=== PATIENT | female | born 1985 | race Caucasian/White ===

== ENCOUNTER 2016-12-31 22:53 | Emergency (ER) | payer OTHER ==
[2017-01-01 00:22] LABS: ADD URINE CULTURE? NO (NO); Bilirubin NEGATIVE (NEGATIVE); Blood NEGATIVE Ery/ul (0-5); COMPLETE URINE MICROSCOPIC? NO; Collection Type CLEAN CATCH; Glucose NEGATIVE (NEGATIVE); Leukocyte Esterase NEGATIVE (NEGATIVE)
--- NOTE | 2017-01-01 00:26 | ERPHSYRPT ---
- History of Present Illness Time Seen by Provider: 12/31/16 23:43 Historian: patient Exam Limitations: no limitations Patient Subjective Stated Complaint: pt notes light brown vag discharge tonight with sl lower abd pain -she has been up and around all day cleaning house -no intercourse recently pt is approx 13 weeks no urinary sx sl vag itching Triage Nursing Assessment: pt is awake and alert and able to answer questions Physician History: FOR THE PAST 12 HOURS PT HAS HAD INTERMITTENT LOWER ABDOMINAL CRAMPS, NAUSEA AND SPOTTING. PT ALSO C/O INCREASED URINARY FREQUENCY FOR THE PAST 3 WEEKS. PT DENIES ABORTIONS OR MISCARRIAGES; HAS BEEN ONCE BEFORE AND WENT FULL TERM. Allergies/Adverse Reactions: No Known Drug Allergies Allergy (Unverified 12/31/16 23:23) Home Medications: Vits W-Ca,Fe,FA(<1Mg) [] 1 tab DAILY 12/31/16 [History] Hx Tetanus, Diphtheria Vaccination/Date Given: No Hx Influenza Vaccination/Date Given: No - Review of Systems Abdominal/Gastrointestinal: Abdominal Pain, Nausea Genitourinary Symptoms: Frequency, , Vaginal Bleeding All Other Systems: Reviewed and Negative - Past Medical History Pertinent Past Medical History: No - Past Surgical History Past Surgical History: No - Social History Smoking Status: Current every day smoker Exposure to second hand smoke: Yes Drug Use: none Patient Lives Alone: No - Female History Hx Last Menstrual Period: 08/26 - Nursing Vital Signs Nursing Vital Signs: Initial Vital Signs Temperature 98 F 12/31/16 23:11 Pulse Rate 88 12/31/16 23:11 Respiratory Rate 16 12/31/16 23:11 Blood Pressure 129/68 12/31/16 23:11 O2 Sat by Pulse Oximetry 97 12/31/16 23:11 Pain Scale Pain Intensity 1 - Physical Exam General Appearance: alert Eye Exam: PERRL/EOMI Ears, Nose, Throat Exam: pharynx normal, moist mucous membranes Neck Exam: normal inspection Respiratory Exam: lungs clear Cardiovascular Exam: normal heart sounds Gastrointestinal/Abdomen Exam: soft, normal bowel sounds, tenderness (MILD SUPRAPUBIC TENDERNESS) Back Exam: normal range of motion Extremity Exam: normal inspection, No pedal edema Neurologic Exam: alert, cooperative Skin Exam: warm, dry SpO2 Interpretation: normal SpO2: 97 Oxygen Delivery: Room Air - Radiology Ultrasound Exam OB Ultrasound: Other (TECH REPORT: 13 WK 4 DAY NORMAL IUP; HEART RATE = 158.) Ordered Tests: Active Orders 24 hr Category Date Time Status Heart Tones-ED STAT Care 12/31/16 23:53 Active OB <14 WKS 1ST GESTATION [US] Stat Exams 01/01/17 23:55 Taken UA W/RFX UR CULTURE Stat Lab 12/31/16 23:40 Completed Lab/Rad Data: Laboratory Results 12/31/16 Range/Units 23:40 Ur Collection Type CLEAN CATCH Urine Color YELLOW (YELLOW) Urine Appearance CLEAR (CLEAR) Urine pH 6.0 (5-6) Ur Specific [place] 1.025 (1.005-1.025) Urine Protein NEGATIVE (Negative) Urine Ketones NEGATIVE (NEGATIVE) Urine Blood NEGATIVE (0-5) Erasmo/ul Urine Nitrite NEGATIVE (NEGATIVE) Urine Bilirubin NEGATIVE (NEGATIVE) Urine Urobilinogen NORMAL (0-1) mg/dL Ur Leukocyte Esterase NEGATIVE (NEGATIVE) Urine Glucose NEGATIVE (NEGATIVE) mg/dL Specimen Received 12/31/16 4246 - Departure Time of Disposition: 00:40 Departure Disposition: Home Clinical Impression: Threatened Condition: Stable Critical Care Time: No Referrals: BRITTNEY GALINDO [Primary Care Provider] - Instructions: Threatened Additional Instructions: FOLLOW UP WITH OB DOCTOR TOMORROW. STRICT BED REST UNTIL OB DOCTOR IS SEEN. Prescriptions: Promethazine HCl 25 mg [Phenergan 25 mg] 25 mg PO Q4H PRN PRN #14 tablet PRN Reason: Nausea/Vomiting
[2017-01-01 00:43] VITALS: BP 130/78; PULSE 72; O2SAT 98
--- NOTE | 2017-01-01 16:03 | XRAY ---
Exam: Transabdominal pelvic ultrasound less than 14 weeks from 01/01/2017. Comparison: OB ultrasound less than 14 weeks from 12/10/2016. Indication: Cramping and spotting, patient is 13 weeks . Findings: Transabdominal images reveal a single live intrauterine fetus. The heart rate measured [address] [place]-rump length measured 7.5 cm consistent with a gestational age of 13 weeks 4 days. This represents normal intrauterine growth since the prior exam of 12/10/2016. Early formation of the placenta appears to be posterior. A normal amount of amniotic fluid is seen. No gross abnormality is seen. The maternal left ovary appears unremarkable. The maternal right ovary is seen more posteriorly and is remarkable only for a tiny cyst. No free fluid is seen within the maternal pelvis. Impression: 1. 13 week 4 day single live intrauterine fetus. The heart rate measured 158 bpm. There has been satisfactory intrauterine growth since the prior OB ultrasound exam from 12/10/2016. 2. Early formation of the placenta appears to be posterior. 3. A normal amount of amniotic fluid is seen. 4. Both maternal ovaries appear unremarkable. No free fluid is seen within the maternal pelvis.
== END 2017-01-01 01:16 | disposition home or self-care (01) ==
LOC: ED 22:53
DX: O20.0 Threatened abortion (principal)
CPT/HCPCS: 76801; 81002; 99283; 99284

== ENCOUNTER 2017-05-27 12:47 | Observation (INO) | payer OTHER ==
[2017-05-27 14:16] VITALS: PULSE 88; O2SAT 97
[2017-05-27] MEDS ORDERED: Lactated Ringers 1,000 ML IV ONE (14:17)
[2017-05-27 14:51] LABS: BASOPHIL % 0.4 % (0.0-0.4); Basophil (Absolute #) 0.04 (0-0.4); Eosinophil % 1.5 % (0.00-5.0); Eosinophil (Absolute #) 0.17 (0-0.5); Granulocyte Absolute (ANC) 6.93 (1.4-6.9); Granulocytes % 62.7 % (36.0-66.0); Hematocrit 34.6 % (35-47); Hemoglobin 11.5 gm/dl (12.0-16.0); Lymphocyte (Absolute #) 3.06 (1.0-4.6); Lymphocytes % 27.7 % (24.0-44.0); Mean Cell Volume 88.7 fl (78-100); Mean Corpuscular Hgb Concent. 33.2 g/dl (32-36); Mean Platelet Volume 9.8 fl (6-9.5); Monocyte (Absolute #) 0.85 (0.0-1.3); Monocytes % 7.7 % (0.0-12.0); Platelet Count 433 K/mm3 (150-450); Red Cell Distribution Width 13.8 % (11.5-14.0); White Blood Count 11.1 K/mm3 (4.0-10.5)
[2017-05-27 14:52] LABS: Mean Corpuscular Hemoglobin 29.4 pg (26-32)
[2017-05-27 14:59] LABS: ALBUMIN 2.5 g/dL (3.4-5.0); ALKALINE PHOSPHATASE 100 U/L (46-116); ANION GAP 16.3 MEQ/L (5-15); BLOOD UREA NITROGEN 4 mg/dL (9-20); CHLORIDE 104 mEq/L (98-107); Calcium 9.1 mg/dL (8.5-10.1); Carbon Dioxide 21.1 mEq/L (21-32); Creatinine 1 0.56 mg/dl (0.55-1.30); EST GLOMERULAR FILTRATION RATE > 60 ML/MIN; Glucose 90 MG/DL (70-110); SGOT/AST 17 U/L (15-37); SGPT/ALT 14 U/L (12-78); SODIUM 137 mEq/L (136-145); Total Protein 6.3 gm/dL (6.4-8.2)
--- NOTE | 2017-05-27 16:05 | XRAY ---
Indication: growth. 2-dimensional OB ultrasound performed. Comparison: April 21, 2017. Again there is a single viable intrauterine now in cephalic presentation. Normal four-chamber heart with heart rate 130 BPM. Normal three-vessel cord and normal cord insertion previously documented. Visualized stomach, kidneys, and bladder are unremarkable. Placenta is posterior again without abruption/previa. BPD measures 8.29 cm corresponding to 33 weeks 2 days. HC measures 30.05 cm corresponding to 33 weeks 2 days. AC measures 29.62 cm corresponding to 33 weeks 4 days. FL measures 6.48 cm corresponding to 33 weeks 3 days. BRIA is 9.7 cm. Impression: Again single viable intrauterine with mean gestational age 33 weeks 3 days. Normal progression of .
--- NOTE | 2017-05-27 16:08 | XRAY ---
Indication: well-being. Ultrasound biophysical profile study was performed. Comparison: None There is a single viable intrauterine with heart rate 130 BPM. Four-quadrant BRIA is 9.7 cm. Largest amniotic pocket 3.6 cm. 2 points given for breathing, movements, tone, and qualitative amniotic fluid volume. Impression: Total biophysical profile score is 8 out of 8.
[2017-05-27 18:05] VITALS: BP 120/67
== END 2017-05-27 18:20 | disposition home or self-care (01) ==
LOC: MED SURG 12:47
PROVIDERS: ADMIT Family Medicine; ATTEND Family Medicine
DX: Z34.83 Encounter for supervision of other normal pregnancy, third trimester (principal)
CPT/HCPCS: 36415; 59025; 76805; 76819; 80053; 85025; G0378

== ENCOUNTER 2017-05-31 12:34 | Observation (INO) | payer OTHER ==
[2017-05-31 13:13] VITALS: BP 116/59; PULSE 96
== END 2017-05-31 14:00 | disposition home or self-care (01) ==
LOC: OB 12:34
PROVIDERS: ADMIT Family Medicine; ATTEND Family Medicine
DX: Z34.83 Encounter for supervision of other normal pregnancy, third trimester (principal)
CPT/HCPCS: 59025; G0378

== ENCOUNTER 2017-07-07 18:30 | Inpatient (IN) | payer OTHER ==
[2017-07-07] MEDS ORDERED: BRETHINE 1 MG/ML SQ PRN (20:19)
[2017-07-07 21:05] LABS: BASOPHIL % 0.3 % (0.0-0.4); Basophil (Absolute #) 0.03 (0-0.4); Eosinophil % 0.6 % (0.00-5.0); Eosinophil (Absolute #) 0.05 (0-0.5); Granulocyte Absolute (ANC) 6.39 (1.4-6.9); Hematocrit 36.6 % (35-47); Hemoglobin 12.3 gm/dl (12.0-16.0); Lymphocyte (Absolute #) 1.33 (1.0-4.6); Lymphocytes % 15.2 % (24.0-44.0); Mean Cell Volume 88.2 fl (78-100); Mean Corpuscular Hemoglobin 29.6 pg (26-32); Mean Corpuscular Hgb Concent. 33.6 g/dl (32-36); Mean Platelet Volume 10.2 fl (6-9.5); Monocyte (Absolute #) 0.95 (0.0-1.3); Monocytes % 10.9 % (0.0-12.0); Platelet Count 370 K/mm3 (150-450); Red Blood Count 4.15 M/mm3 (4.1-5.4); Red Cell Distribution Width 14.1 % (11.5-14.0); White Blood Count 8.8 K/mm3 (4.0-10.5)
[2017-07-07 21:20] LABS: Amphetamine,Urine NEG. (NEGATIVE); Barbiturate,Urine NEG. (NEGATIVE); Benzodiazepine,Urine NEG. (NEGATIVE); Cocaine,Urine NEG. (NEGATIVE); Methadone,Urine NEG. (NEGATIVE); Opiate,Urine NEG. (NEGATIVE); PCP,Urine NEG. (NEGATIVE); THC,Urine NEG. (NEGATIVE)
[2017-07-07] MEDS ORDERED: Cervidil 10 MG VAG SCH (22:00)
[2017-07-07] MEDS ORDERED: Ambien 5 MG Tablet ONE (22:36)
[2017-07-07] MEDS ORDERED: Ambien 5 MG Tablet PO PRN (22:39)
[2017-07-08] MEDS ORDERED: Ephedrine Sulfate 50 MG/ML IV PRN (05:41)
[2017-07-08] MEDS ORDERED: Lactated Ringers 1,000 ML IV ONE (05:41)
[2017-07-08] MEDS ORDERED: OB EPIDURAL NAROPIN/SUFENTANIL IN NACL EPIDURAL PRN (05:41)
[2017-07-08 07:38] VITALS: O2SAT 97
[2017-07-08] MEDS ORDERED: XYLOCAINE 1% HCL 20 ML MDV ONE (07:48)
[2017-07-08] MEDS ORDERED: Lactated Ringers 1,000 ML IV SCH (09:00)
[2017-07-08] MEDS ORDERED: PITOCIN 30 UNITS/ LR 500 ML 500 ML IV SCH (09:00)
[2017-07-08] MEDS ORDERED: Anucort-HC SUPPOSITORY PR PRN (13:16)
[2017-07-08] MEDS ORDERED: Dulcolax 10 MG SUPP PR PRN (13:16)
[2017-07-08] MEDS ORDERED: NORCO 5/325 MG PO PRN (13:16)
[2017-07-08] MEDS ORDERED: TYLENOL EXTRA STRENGTH 500 MG PO PRN (13:16)
[2017-07-08] MEDS ORDERED: CORTISONE 1% CREAM TP PRN (13:16)
[2017-07-08] MEDS ORDERED: Mylicon 80MG PO PRN (13:16)
[2017-07-08] MEDS ORDERED: Dermoplast Spray TP PRN (13:16)
[2017-07-08] MEDS ORDERED: LANSINOH 40 GM TOP PRN (13:16)
[2017-07-08] MEDS ORDERED: TUCKS TP PRN (13:16)
[2017-07-08] MEDS ORDERED: Ambien 10 MG PO PRN (13:16)
[2017-07-08] MEDS: MOTRIN 400 MG PO PRN ×2 (13:25→20:44)
[2017-07-08] MEDS ORDERED: Adacel Vial IM ONE (16:00)
[2017-07-08] MEDS: Colace 100 MG PO SCH (20:44)
[2017-07-09 06:03] LABS: BASOPHIL % 0.6 % (0.0-0.4); Basophil (Absolute #) 0.04 (0-0.4); Eosinophil % 0.2 % (0.00-5.0); Eosinophil (Absolute #) 0.01 (0-0.5); Granulocyte Absolute (ANC) 3.86 (1.4-6.9); Granulocytes % 59.4 % (36.0-66.0); Hematocrit 35.7 % (35-47); Hemoglobin 11.8 gm/dl (12.0-16.0); Lymphocyte (Absolute #) 1.96 (1.0-4.6); Lymphocytes % 30.2 % (24.0-44.0); Mean Cell Volume 89.3 fl (78-100); Mean Corpuscular Hemoglobin 29.5 pg (26-32); Mean Corpuscular Hgb Concent. 33.1 g/dl (32-36); Mean Platelet Volume 10.3 fl (6-9.5); Monocyte (Absolute #) 0.62 (0.0-1.3); Monocytes % 9.6 % (0.0-12.0); Platelet Count 321 K/mm3 (150-450); Red Cell Distribution Width 14.5 % (11.5-14.0); White Blood Count 6.5 K/mm3 (4.0-10.5)
[2017-07-09] MEDS: FERREX 150 PO SCH (09:19)
[2017-07-09] MEDS: Colace 100 MG PO SCH ×2 (11:46→20:18)
[2017-07-09] MEDS: MOTRIN 400 MG PO PRN (20:01)
[2017-07-10] MEDS: FERREX 150 PO SCH (10:17)
[2017-07-10 10:18] VITALS: BP 118/72; PULSE 98
--- NOTE | 2017-07-10 10:41 | PCM.DS ---
Discharge Summary Date of Admission: 07/08/17 05:30 Admitting Physician: BRITTNEY GALINDO Consults: Consults on Case 07/08/17 05:41 Notify Anesthesia Provider PRN Primary Care Provider: BRITTNEY GALINDO Allergies Allergies No Known Drug Allergies Allergy (Verified 05/31/17 12:59) Hospital Summary - Hospital Course Hospital Course: patient 31yo for induction of labor at 40 2/7 wks, had with no complications. pain is mild and controlled with motrin. - Vitals & Intake/Output Vital Signs: Vital Signs Temperature 99.3 F 07/10/17 10:00 Pulse Rate 98 H 07/10/17 10:00 Respiratory Rate 18 07/10/17 10:00 Blood Pressure 118/72 07/10/17 10:00 O2 Sat by Pulse Oximetry 97 07/08/17 06:35 Intake & Output: Intake & Output 07/07/17 07/08/17 07/09/17 07/10/17 11:59 11:59 11:59 11:59 Intake Total 1200 Balance 1200 Weight 190 kg 86.183 kg - Lab Result Diagrams: 07/09/17 05:10 Discharge Exam General Appearance: no apparent distress, alert Skin Exam: normal color, warm, dry Respiratory Exam: normal breath sounds, lungs clear, No respiratory distress Cardiovascular Exam: regular rate/rhythm, normal heart sounds Gastrointestinal/Abdomen Exam: soft, No tenderness, No mass Extremity Exam: normal inspection, normal range of motion Final Diagnosis/Problem List - Final Discharge Diagnosis/Problem (1) Vaginal delivery Current Visit: Yes Status: Acute (2) (infant) Current Visit: Yes Status: Acute - Discharge Disposition: Home, Self-Care Condition: Stable Prescriptions: New Breast Pump 1 each UD #1 each Continue Vits W-Ca,Fe,FA(<1Mg) [] 1 tab PO DAILY Ferrous Sulfate 325 mg PO DAILY Ranitidine HCl [Zantac] 150 mg PO BID Follow up with: BRITTNEY GALINDO [Primary Care Provider] - 1 Week
[2017-07-10] MEDS: Colace 100 MG PO SCH (11:16)
== END 2017-07-10 13:45 | disposition home or self-care (01) | DRG 775 ==
LOC: UNDOADMOB 18:30 → MED SURG 18:30 → INTOOBSV 07-08 05:30 → OBSVTOIN 07-08 05:30
PROVIDERS: ADMIT Family Medicine; ATTEND Family Medicine
PROC: 10E0XZZ Delivery of Products of Conception, External Approach (ICD-10-PCS; principal; 2017-07-08)
DX: O80 Encounter for full-term uncomplicated delivery (principal); Z3A.40 40 weeks gestation of pregnancy; Z37.0 Single live birth; D64.9 Anemia, unspecified
CPT/HCPCS: 01967; 36415; 80307; 85025; 90472; 90715; 94799; G0378; J2590; J2795; A9270-GY

== ENCOUNTER 2023-03-31 18:54 | Emergency (ER) | payer BC ==
[2023-03-31 19:05] VITALS: TEMP 95.9
[2023-03-31 19:12] LABS: Hematocrit 43.9 % (35-47); Hemoglobin 14.2 g/dL (12.0-16.0); Mean Cell Volume 84.3 fL (78-100); Mean Corpuscular Hemoglobin 27.3 pg (26-32); Mean Corpuscular Hgb Concent. 32.3 g/dL (32-36); Mean Platelet Volume 9.3 fL (7.5-11.0); Platelet Count 520 x10^3/uL (150-450); Red Blood Count 5.21 x10^6/uL (4.1-5.4); Red Cell Distribution Width 13.1 % (11.5-14.0); White Blood Count 14.1 x10^3/uL (4.0-10.5)
[2023-03-31 19:37] LABS: ALBUMIN 4.3 g/dL (3.5-5.0); ALKALINE PHOSPHATASE 82 U/L (38-126); BLOOD UREA NITROGEN 8 mg/dL (7-17); CHLORIDE 103 mmol/L (98-107); Calcium 9.7 mg/dL (8.4-10.2); Carbon Dioxide 24 mmol/L (22-30); EST GLOMERULAR FILTRATION RATE 85.5 ML/MIN; Glucose 109 mg/dL (74-106); NT PRO BNPII < 20.0 pg/mL (<300); Potassium 3.5 mmol/L (3.5-5.1); SGOT/AST 19 U/L (14-36); SGPT/ALT 27 U/L (0-35); SODIUM 141 mmol/L (137-145); Total Protein 7.5 g/dL (6.3-8.2)
[2023-03-31 19:48] LABS: HCG SERUM TEST NEGATIVE (NEGATIVE)
[2023-03-31] MEDS ORDERED: BABY ASPIRIN 81 MG CHEW PO ONE (19:50)
--- NOTE | 2023-03-31 19:58 | ERPHSYRPT ---
- History of Present Illness Time Seen by Provider: 03/31/23 19:10 Historian: patient Exam Limitations: no limitations Patient Subjective Stated Complaint: Chest pain Triage Nursing Assessment: Patient ambulated back to ED and transferred self to bed. Patient state around 1800 she was sitting in a chair when she suddenly felt her heart racing then she started getting pressure in chest down left shoulder to elbow. Patient currently denies pain. Patient denies N/V Physician History: Patient is a 37-year-old female presents to our ED for evaluation of heart palpitations and chest pressure. Symptoms started at approximately 1800. Patient was sitting in a chair. Patient began to feel her heart race. Patient felt a pain sensation down her left arm. No associated nausea vomiting or diaphoresis. No trauma no fever. Patient does not know her health status. She does not follow-up with a primary care doctor regularly. Patient is a smoker. Patient is not on control. 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 She is not actively taking any medications. Patient is currently asymptomatic. at bedside. They voiced no other complaints or concerns at this time. Portions of this note were created with voice recognition technology. There may be grammatical, spelling, punctuation or sound alike errors Timing/Duration: today Activities at Onset: none (Sitting in a chair) Quality: pressure Location: substernal Chest Pain Radiation: arm Severity of Pain-Max: moderate Severity of Pain-Current: none Modifying Factors: Improves With: nothing Associated Symptoms: denies symptoms Prior Chest Pain/Cardiac Workup: no prior chest pain Nitro Today/Relief: no nitro taken today Aspirin Treatment Today: no aspirin today Allergies/Adverse Reactions: No Known Drug Allergies Allergy (Verified 03/31/23 18:57) Home Medications: No Reportable Medications [No Reported Medications] 03/31/23 [History] Hx Tetanus, Diphtheria Vaccination/Date Given: No Hx Influenza Vaccination/Date Given: No Hx Pneumococcal Vaccination/Date Given: No Immunizations Up to Date: Yes Travel Risk - International Travel Have you traveled outside of the country in past 3 weeks: No - Coronavirus Screening Are you exhibiting any of the following symptoms?: No Close contact with a COVID-19 positive Pt in past 14-21 Days: No - Vaccine Status Have you recieved a Covid-19 vaccination: Yes [employer]: Unknown - Vaccination Dates Dates if Unknown: na - Review of Systems Constitutional: No Symptoms, No Fever, No Chills Eyes: No Symptoms Ears, Nose, & Throat: No Symptoms Respiratory: No Symptoms, No Cough, No Dyspnea Cardiac: No Symptoms, No Chest Pain, No Edema, No Syncope Abdominal/Gastrointestinal: No Symptoms, No Abdominal Pain, No Nausea, No Vomiting, No Diarrhea Genitourinary Symptoms: No Symptoms, No Dysuria Musculoskeletal: No Symptoms, No Back Pain, No Neck Pain Skin: No Symptoms, No Rash Neurological: No Symptoms, No Dizziness, No Focal Weakness, No Sensory Changes Psychological: No Symptoms Endocrine: No Symptoms Hematologic/Lymphatic: No Symptoms Immunological/Allergic: No Symptoms All Other Systems: Reviewed and Negative - Past Medical History Pertinent Past Medical History: No - Past Surgical History Past Surgical History: No - Social History Smoking Status: Never smoker How long have you smoked: 7 yrs Exposure to second hand smoke: No Drug Use: none Patient Lives Alone: No - Female History Hx Last Menstrual Period: this week Hx Now: No - Nursing Vital Signs Nursing Vital Signs: Initial Vital Signs Temperature 95.9 F 03/31/23 18:59 Pulse Rate 105 H 03/31/23 18:59 Respiratory Rate 18 03/31/23 18:59 Blood Pressure 169/96 03/31/23 18:59 O2 Sat by Pulse Oximetry 100 03/31/23 18:59 Pain Scale Pain Intensity 0 - Physical Exam General Appearance: no apparent distress, alert Eye Exam: PERRL/EOMI, eyes nml inspection Ears, Nose, Throat Exam: normal ENT inspection, TMs normal, pharynx normal, moist mucous membranes Neck Exam: normal inspection, non-tender, supple, full range of motion Respiratory Exam: normal breath sounds, lungs clear, airway intact, No chest tenderness, No respiratory distress Cardiovascular Exam: regular rate/rhythm, normal heart sounds, normal peripheral pulses Gastrointestinal/Abdomen Exam: soft, normal bowel sounds, No tenderness, No mass Back Exam: normal inspection, No CVA tenderness, No vertebral tenderness Extremity Exam: normal inspection, normal range of motion Neurologic Exam: alert, oriented x 3, cooperative, normal mood/affect, sensation nml, No motor deficits Skin Exam: normal color, warm, dry Lymphatic Exam: No adenopathy SpO2 Interpretation: normal SpO2: 99 O2 Delivery: Room Air - Course Nursing assessment & vital signs reviewed: Yes EKG Interpreted by Me: RATE (108), Sinus Tach, NORMAL AXIS, NORMAL INTERVALS - Radiology Exams Chest X-ray Interpretation: Interpreted by me (Negative chest x-ray) Ordered Tests: Active Orders 24 hr Category Date Time Status Figurine Maker STAT Care 03/31/23 19:05 Active EKG-ER Only STAT Care 03/31/23 19:04 Active IV Insertion STAT Care 03/31/23 19:04 Active CHEST 1 VIEW (PORTABLE) Stat Exams 03/31/23 19:14 Taken CBC W DIFF Stat Lab 03/31/23 19:00 Completed CMP Stat Lab 03/31/23 19:00 Completed D-DIMER QUANTITATIVE Stat Lab 03/31/23 19:00 Completed HCG QUALITATIVE, SERUM Stat Lab 03/31/23 19:00 Completed Manual Differential NC Stat Lab 03/31/23 19:00 Completed NT PRO BNPII Stat Lab 03/31/23 19:00 Completed TROPONIN Q4H Lab 03/31/23 19:00 Completed TROPONIN Q4H Lab 03/31/23 22:54 Completed TROPONIN Q4H Lab 04/01/23 03:15 Ordered UA W/RFX UR CULTURE Stat Lab 03/31/23 22:45 Completed Medication Summary Discontinued Medications Generic Name Dose Route Start Last Admin Trade Name Freq PRN Reason Stop Dose Admin Aspirin 324 mg 03/31/23 19:50 03/31/23 20:16 Aspirin 81 Mg Tab.Chew PO 03/31/23 19:51 324 mg STAT ONE Administration Aspirin Confirm 03/31/23 20:14 Aspirin 81 Mg Tab.Chew Administered 03/31/23 20:15 Dose 324 mg .ROUTE .STK-MED ONE Lab/Rad Data: Laboratory Result Diagrams 03/31/23 19:00 03/31/23 19:00 Laboratory Results 03/31/23 03/31/23 03/31/23 Range/Units 22:54 22:45 19:00 WBC (4.0-10.5) x10^3/uL RBC (4.1-5.4) x10^6/uL Hgb (12.0-16.0) g/dL Hct (35-47) % MCV (78-100) fL MCH (26-32) pg MCHC (32-36) g/dL RDW (11.5-14.0) % Plt Count (150-450) x10^3/uL MPV (7.5-11.0) fL Segmented Neutrophils (36.0-66.0) % Lymphocytes (Manual) (24-44) % Monocytes (Manual) (0.0-12.0) % Eosinophils (Manual) (0.00-3.0) % Platelet Estimate (NORMAL) RBC Morphology D-Dimer (0.0-0.50) mg/L Sodium (137-145) mmol/L Potassium (3.5-5.1) mmol/L Chloride (98-107) mmol/L Carbon Dioxide (22-30) mmol/L Anion Gap (5-15) MEQ/L BUN (7-17) mg/dL Creatinine (0.52-1.04) mg/dL Estimated GFR ML/MIN Glucose (74-106) mg/dL Calcium (8.4-10.2) mg/dL Total Bilirubin (0.2-1.3) mg/dL AST (14-36) U/L ALT (0-35) U/L Alkaline Phosphatase (38-126) U/L Troponin I < 0.012 (0.000-0.034) ng/mL NT-Pro-B Natriuret Pep (<300) pg/mL Serum Total Protein (6.3-8.2) g/dL Albumin (3.5-5.0) g/dL Serum HCG, Qual NEGATIVE (NEGATIVE) Urine Color Yellow (Yellow) Urine Appearance Clear (Clear) Urine pH 6.5 (4.6-8.0) Ur Specific [place] 1.015 (1.005-1.030) Urine Protein Negative (Negative) Urine Glucose (UA) Negative (Negative) mg/dL Urine Ketones Negative (Negative) Urine Blood Negative (Negative) Urine Nitrite Negative (Negative) Urine Bilirubin Negative (Negative) Urine Urobilinogen 0.2 (0.2) mg/dL Ur Leukocyte Esterase Negative (Negative) U Hyaline Cast (Auto) NONE SEEN (0-2) /LPF Urine Microscopic RBC 0-2 (0-5) /HPF Urine Microscopic WBC 0-2 (0-5) /HPF Ur Epithelial Cells None Seen (None Seen) /HPF Urine Bacteria None Seen (None Seen) /HPF Urine Culture Reflexed NO (NO) 03/31/23 03/31/23 03/31/23 Range/Units 19:00 19:00 19:00 WBC (4.0-10.5) x10^3/uL RBC (4.1-5.4) x10^6/uL Hgb (12.0-16.0) g/dL Hct (35-47) % MCV (78-100) fL MCH (26-32) pg MCHC (32-36) g/dL RDW (11.5-14.0) % Plt Count (150-450) x10^3/uL MPV (7.5-11.0) fL Segmented Neutrophils (36.0-66.0) % Lymphocytes (Manual) (24-44) % Monocytes (Manual) (0.0-12.0) % Eosinophils (Manual) (0.00-3.0) % Platelet Estimate (NORMAL) RBC Morphology D-Dimer < 0.19 (0.0-0.50) mg/L Sodium 141 (137-145) mmol/L Potassium 3.5 (3.5-5.1) mmol/L Chloride 103 (98-107) mmol/L Carbon Dioxide 24 (22-30) mmol/L Anion Gap 17.0 H (5-15) MEQ/L BUN 8 (7-17) mg/dL Creatinine 0.90 (0.52-1.04) mg/dL Estimated GFR 85.5 ML/MIN Glucose 109 H (74-106) mg/dL Calcium 9.7 (8.4-10.2) mg/dL Total Bilirubin 0.20 (0.2-1.3) mg/dL AST 19 (14-36) U/L ALT 27 (0-35) U/L Alkaline Phosphatase 82 (38-126) U/L Troponin I < 0.012 (0.000-0.034) ng/mL NT-Pro-B Natriuret Pep < 20.0 (<300) pg/mL Serum Total Protein 7.5 (6.3-8.2) g/dL Albumin 4.3 (3.5-5.0) g/dL Serum HCG, Qual (NEGATIVE) Urine Color (Yellow) Urine Appearance (Clear) Urine pH (4.6-8.0) Ur Specific [place] (1.005-1.030) Urine Protein (Negative) Urine Glucose (UA) (Negative) mg/dL Urine Ketones (Negative) Urine Blood (Negative) Urine Nitrite (Negative) Urine Bilirubin (Negative) Urine Urobilinogen (0.2) mg/dL Ur Leukocyte Esterase (Negative) U Hyaline Cast (Auto) (0-2) /LPF Urine Microscopic RBC (0-5) /HPF Urine Microscopic WBC (0-5) /HPF Ur Epithelial Cells (None Seen) /HPF Urine Bacteria (None Seen) /HPF Urine Culture Reflexed (NO) 03/31/23 Range/Units 19:00 WBC 14.1 H (4.0-10.5) x10^3/uL RBC 5.21 (4.1-5.4) x10^6/uL Hgb 14.2 (12.0-16.0) g/dL Hct 43.9 (35-47) % MCV 84.3 (78-100) fL MCH 27.3 (26-32) pg MCHC 32.3 (32-36) g/dL RDW 13.1 (11.5-14.0) % Plt Count 520 H (150-450) x10^3/uL MPV 9.3 (7.5-11.0) fL Segmented Neutrophils 57 (36.0-66.0) % Lymphocytes (Manual) 35 (24-44) % Monocytes (Manual) 5 (0.0-12.0) % Eosinophils (Manual) 3 (0.00-3.0) % Platelet Estimate INCREASED (NORMAL) RBC Morphology NORMAL D-Dimer (0.0-0.50) mg/L Sodium (137-145) mmol/L Potassium (3.5-5.1) mmol/L Chloride (98-107) mmol/L Carbon Dioxide (22-30) mmol/L Anion Gap (5-15) MEQ/L BUN (7-17) mg/dL Creatinine (0.52-1.04) mg/dL Estimated GFR ML/MIN Glucose (74-106) mg/dL Calcium (8.4-10.2) mg/dL Total Bilirubin (0.2-1.3) mg/dL AST (14-36) U/L ALT (0-35) U/L Alkaline Phosphatase (38-126) U/L Troponin I (0.000-0.034) ng/mL NT-Pro-B Natriuret Pep (<300) pg/mL Serum Total Protein (6.3-8.2) g/dL Albumin (3.5-5.0) g/dL Serum HCG, Qual (NEGATIVE) Urine Color (Yellow) Urine Appearance (Clear) Urine pH (4.6-8.0) Ur Specific [place] (1.005-1.030) Urine Protein (Negative) Urine Glucose (UA) (Negative) mg/dL Urine Ketones (Negative) Urine Blood (Negative) Urine Nitrite (Negative) Urine Bilirubin (Negative) Urine Urobilinogen (0.2) mg/dL Ur Leukocyte Esterase (Negative) U Hyaline Cast (Auto) (0-2) /LPF Urine Microscopic RBC (0-5) /HPF Urine Microscopic WBC (0-5) /HPF Ur Epithelial Cells (None Seen) /HPF Urine Bacteria (None Seen) /HPF Urine Culture Reflexed (NO) - Progress Progress: improved Air Movement: good Progress Note: Patient a 37-year-old female presents to our ED for evaluation of heart palpitations and chest pressure. Essentially nonremarkable. EKG was normal sinus rhythm. Chest x-ray within normal limits. CBC reveals leukocytosis however patient has no nidus of infection. Chest x-ray within normal limits. Urinalysis within normal limits. Patient is afebrile. Mild thrombocytosis at 520. CMP within normal limits. D-dimer negative. hCG negative. BNP within normal limits. Troponin negative x2. Patient received an oral dose of aspirin. In light of patient's heart palpitations we will order Holter monitor for further evaluation. Preliminary work-up in our ED is negative. Patient reassessed. She is asymptomatic. Patient sleeping in room. Vitals have been stable throughout her stay. Plan of care discussed with patient. She agrees to follow-up with her primary care doctor within 48 hours for reevaluation. Portions of this note were created with voice recognition technology. There may be grammatical, spelling, punctuation or sound alike errors Complexity of problems addressed is moderate acute complicated No critical care time Complexity of data reviewed and analyzed is moderate. Test ordered test reviewed. Results analyzed and correlated clinically with history and physical examination. EKG and chest x-ray dependently reviewed by Dr. Pierce. Risk of complication and or risk of morbidity/mortality of patient management is moderate. Patient's heart score is 2. Vital stable. Time spent to discharge patient is approximately 15 minutes. Holter monitor applied to further assess possible origin/causes of patient's heart palpitations. Plan of care established via shared decision making. No social determinants of health present impede follow-up. 04/01/23 00:13 04/01/23 00:19 Blood Culture(s) Obtained: No Antibiotics given: No Counseled pt/family regarding: lab results, diagnosis, need for follow-up, rad results - Departure Departure Disposition: Home Clinical Impression: Chest pain, Heart palpitations Condition: Stable Critical Care Time: No Referrals: BRITTNEY SILVA [Primary Care Provider] - Follow up/PCP as directed Additional Instructions: Discharge/Care Plan ANGEL MORRIS was seen on 04/01/23 in the Emergency Room. The patient was counseled regarding Diagnosis,Lab results, Imaging studies, need for follow up and when to return to the Emergency Room. Prescriptions given: Discharge Note I have spoken with the patient and/or caregivers. I have explained the patient's condition, diagnosis and treatment plan based on the information available to me at this time. I have answered the patient's and/or caregiver's questions and addressed any concerns. The patient and/or caregivers have as good understanding of the patient's diagnosis, condition and treatment plan as can be expected at this point. The vital signs have been stable. The patient's condition is stable and appropriate for discharge from the emergency department. The patient will pursue further outpatient evaluation with the primary care physician or other designated or consulting physician as outlined in the discharge instructions. The patient and/or caregivers are agreeable to this plan of care and follow-up instructions have been explained in detail. The patient and/or caregivers have received these instruction. The patient/and or caregivers are aware that any significant change in condition or worsening of symptoms should prompt an immediate return to this or the closest emergency department or call 911.
[2023-03-31] MEDS ORDERED: BABY ASPIRIN 81 MG CHEW ONE (20:14)
[2023-03-31 22:59] LABS: Appearance Clear (Clear); Bacteria None Seen /HPF (None Seen); Bilirubin Negative (Negative); Blood Negative (Negative); Epithelial Cells None Seen /HPF (None Seen); Glucose, Urine Negative (Negative); Hyaline Casts NONE SEEN /LPF (0-2); Ketones Negative (Negative); Leukocyte Esterase Negative (Negative); Nitrite Negative (Negative); Ph 6.5 (4.6-8.0); Protein,Urine Dip Negative (Negative); RBC 0-2 /HPF (0-5); Specific Gravity 1.015 (1.005-1.030); Urobilinogen 0.2 mg/dL (0.2); WBC 0-2 /HPF (0-5)
[2023-03-31 23:04] LABS: ADD URINE CULTURE? NO (NO)
[2023-03-31 23:12] LABS: Eosinophil 3 % (0.00-3.0); Lymphocytes 35 % (24-44); Monocyte 5 % (0.0-12.0); Neutrophils 57 % (36.0-66.0); Total Cells Counted 100
[2023-03-31 23:13] LABS: Platelet Estimate INCREASED (NORMAL)
[2023-03-31 23:47] VITALS: PULSE 73; RESP 18
[2023-04-01 00:18] VITALS: BP 103/62
[2023-04-01 00:19] VITALS: O2SAT 99
--- NOTE | 2023-04-01 08:38 | XRAY ---
Indication: Chest pain. Comparison: None Portable apical lordotic chest demonstrates normal heart, lungs, and bony thorax.
== END 2023-04-01 00:36 | disposition home or self-care (01) ==
LOC: ED 18:54
DX: R00.2 Palpitations (principal); R07.9 Chest pain, unspecified
CPT/HCPCS: 36000; 36415; 71045; 80053; 81001; 83880; 84484; 84703; 85025; 85379; 93005; 93041; 93225; 99284; A9270-GY

== ENCOUNTER 2023-11-29 16:26 | Emergency (ER) | payer BC ==
[2023-11-29 17:41] VITALS: RESP 18; TEMP 97.8
--- NOTE | 2023-11-29 17:43 | ERPHSYRPT ---
- History of Present Illness Time Seen by Provider: 11/29/23 17:43 Source: patient, family Exam Limitations: no limitations Patient Subjective Stated Complaint: pt here for pain to right foot and ankle, she states she twisted ankle today Triage Nursing Assessment: pt alert, resp easy, arrived per wc, skin w/d/p. has swelling to right ankle Physician History: This is a 38-year-old white female patient of Dr. Dorian Helm who twisted her ankle earlier today and has pain in her right foot and right ankle. Patient describes it as a burning discomfort. Method of Injury: twisted Occurred: this afternoon Quality: burning, sharpness Severity of Pain-Max: mild (To moderate) Severity of Pain-Current: mild (To moderate) Lower Extremities Pain: foot: right, ankle: right Modifying Factors: Improves With: movement Associated Symptoms: other (Can bear weight but hurts to do so) Allergies/Adverse Reactions: No Known Drug Allergies Allergy (Verified 11/29/23 17:35) Home Medications: No Reportable Medications [No Reported Medications] 03/31/23 [History] Hx Tetanus, Diphtheria Vaccination/Date Given: No Hx Influenza Vaccination/Date Given: No Hx Pneumococcal Vaccination/Date Given: No Immunizations Up to Date: Yes Travel Risk - International Travel Have you traveled outside of the country in past 3 weeks: No - Emerging Infectious Disease Are you exhibiting symptoms associated with any current EIDs: No - Review of Systems Constitutional: No Symptoms Eyes: No Symptoms Ears, Nose, & Throat: No Symptoms Respiratory: No Symptoms Cardiac: No Symptoms Abdominal/Gastrointestinal: No Symptoms Genitourinary Symptoms: No Symptoms Musculoskeletal: Injury (Right foot and right ankle) Skin: No Symptoms Neurological: No Symptoms Psychological: No Symptoms Endocrine: No Symptoms Hematologic/Lymphatic: No Symptoms Immunological/Allergic: No Symptoms All Other Systems: Reviewed and Negative - Past Medical History Pertinent Past Medical History: No - Past Surgical History Past Surgical History: No - Female History Hx Last Menstrual Period: now Hx Now: No - Social History Smoking Status: Never smoker How long have you smoked: 7 yrs Exposure to second hand smoke: No Drug Use: none Patient Lives Alone: No - Social Determinants of Health Will the patient participate in the screening: Yes Do you worry about a steady place to live?: No Do you have any problems with any of the following?: No known problems In the past 12 months,have you had to go without utilities?: No Transportation Issues: No Has anyone in your support network made you feel unsafe?: No Have you or anyone in your house had to go without enough: No - Nursing Vital Signs Nursing Vital Signs: Initial Vital Signs Temperature 97.8 F 11/29/23 17:40 Pulse Rate 78 11/29/23 17:40 Respiratory Rate 18 11/29/23 17:40 Blood Pressure 133/59 11/29/23 17:40 O2 Sat by Pulse Oximetry 100 11/29/23 17:40 Pain Scale Pain Intensity 5 - Physical Exam General Appearance: no apparent distress, alert, anxiety Eyes, Ears, Nose, Throat Exam: normal ENT inspection, moist mucous membranes Neck Exam: normal inspection, non-tender, supple, full range of motion Cardiovascular/Respiratory Exam: chest non-tender, no respiratory distress Gastrointestinal/Abdominal Exam: non-tender Back Exam: normal inspection, normal range of motion, No CVA tenderness, No vertebral tenderness Hips Exam: bilateral: non-tender, normal inspection, normal range of motion, no evidence of injury Legs Exam: bilateral leg: non-tender, normal inspection, normal range of motion, no evidence of injury Knees Exam: bilateral knee: non-tender, normal inspection, normal range of motion, no evidence of injury Ankle Exam: right ankle: swelling (Lateral aspect mild), left ankle: non-tender, bilateral ankle: normal inspection, normal range of motion, no evidence of injury Foot Exam: right foot: bone tenderness, limited range of motion, soft tissue tenderness, swelling, left foot: non-tender, normal inspection, normal range of motion, no evidence of injury Neuro/Tendon Exam: normal sensation, normal motor functions, normal tendon functions, responds to pain, no evidence tendon injury Mental Status Exam: alert, oriented x 3, cooperative Skin Exam: normal color, warm, dry SpO2 Interpretation: normal SpO2: 100 O2 Delivery: Room Air - Course Nursing assessment & vital signs reviewed: Yes Ordered Tests: Active Orders 24 hr Category Date Time Status Crutches STAT Care 11/29/23 19:10 Active Splint STAT Care 11/29/23 19:09 Active ANKLE (3 VIEWS) Stat Exams 11/29/23 17:41 Taken FOOT (MINIMUM 3 VIEWS) Stat Exams 11/29/23 17:41 Taken - Progress Progress: improved, pain not gone completely, re-examined Progress Note: 11/29/23 19:57 My medical decision making and the assignment of low complexity to this patient's issue today is based on review of the patient's past medical history, review of the patient's medication list, review of patient drug allergy list, history present illness and physical findings on examination. The workup in this patient includes x-ray of the right foot and right ankle. I interpreted the preliminary report of the patient's x-ray of her right foot and right ankle. The right foot shows a navicular fracture that is nondisplaced. With regard to the right ankle x-ray there is no evidence of any acute fracture or dislocation. The final report of the patient's x-ray of her right foot was interpreted by the radiologist and he agrees there is a nondisplaced navicular fracture. The final report of the patient x-ray of her right ankle was interpreted by the radiologist and he agrees there is no acute fracture or dislocation present. Patient states that she does not want any narcotic medication. She will just use Tylenol and ibuprofen at home. Counseled pt/family regarding: diagnosis, need for follow-up, rad results Medical Desision Making - Independent Historian Additional History obtained from: Spouse - Diagnostic Testing Diagnostic test were ordered, analyzed, and reviewed by me: Yes Radiological Interpretation: Interpreted by me, Reviewed by me, Teleradiologist Report - Risk of complications Minimal Risk: Minimal risk of morbidity - Departure Departure Disposition: Home Clinical Impression: Navicular fracture, foot Condition: Stable Critical Care Time: No Referrals: BRITTNEY SILVA [Primary Care Provider] - Follow up/PCP as directed Instructions: Foot Fracture (DC) Additional Instructions: Ice pack to tender area 3 times a day for the next 72 hours. Use Tylenol and ibuprofen for pain control. Keep the foot elevated above the level of her heart when not performing a light weightbearing. Use the crutches to help with light weightbearing. Follow-up with podiatry of choice. You may also follow-up with [facility] music therapist, Dr. Recinos. Call his office tomorrow, 11/30/2023, to make arranges for follow-up appointment for further evaluation management. Final option is to use [facility] orthopedic clinic. It is a walk-in clinic. You do not need to have an appointment. It is open Wade through Wednesday 8 AM to 10 AM.
[2023-11-29 19:35] VITALS: BP 148/74; PULSE 72
[2023-11-29 20:00] VITALS: O2SAT 100
--- NOTE | 2023-11-30 08:32 | XRAY ---
Indication: Swelling following twisting injury. Comparison: None 3 nonweightbearing views right foot demonstrates nondisplaced fracture medial aspect navicular bone. Incidental tiny plantar heel spur. No other bony, articular, or soft tissue abnormalities.
--- NOTE | 2023-11-30 08:32 | XRAY ---
Indication: Swelling following twisting injury. Comparison: None 3 view right ankle demonstrates incidental 5 mm fibrous cortical defect distal tibia lateral aspect and tiny plantar heel spur. No other bony, articular, or soft tissue abnormalities.
== END 2023-11-29 20:00 | disposition home or self-care (01) ==
LOC: ED 16:26
DX: S92.254A Nondisplaced fracture of navicular [scaphoid] of right foot, initial encounter for closed fracture (principal); X50.0XXA Overexertion from strenuous movement or load, initial encounter
CPT/HCPCS: 73610; 73630; 99283

== ENCOUNTER 2025-03-17 21:13 | Emergency (ER) | payer BC ==
[2025-03-17 21:39] VITALS: TEMP 97
[2025-03-17] MEDS ORDERED: MORPHINE SULFATE 4 MG INJ ONE (22:05)
[2025-03-17] MEDS ORDERED: Zofran 4 MG/2 ML VIAL ONE (22:05)
[2025-03-17] MEDS: MORPHINE SULFATE 4 MG INJ IV ONE (22:07)
[2025-03-17] MEDS: Zofran 4 MG/2 ML VIAL IV ONE (22:07)
[2025-03-17 22:11] LABS: BASOPHIL % 0.8 % (0.1-1.2); Basophil (Absolute #) 0.10 x10^3/uL (0.01-0.08); Eosinophil (Absolute #) 0.15 x10^3/uL (0.04-0.36); Hematocrit 40.9 % (34.1-44.9); Hemoglobin 12.8 g/dL (11.2-15.7); IMMATURE GRAN # 0.05 x10^3u/L (0.001-0.031); IMMATURE GRAN % 0.4 % (0.001-0.429); Lymphocyte (Absolute #) 2.32 x10^3/uL (1.18-3.74); Mean Corpuscular Hemoglobin 24.9 pg (25.6-32.2); Mean Corpuscular Hgb Concent. 31.3 g/dL (32.2-35.5); Monocyte (Absolute #) 0.98 x10^3/uL (0.24-0.86); NUCLEATED RBC # 0.00 x10^3u/L (0.00-0.012); NUCLEATED RBC % 0.0 % (0.00-0.2); Platelet Count 514 x10^3/uL (182-369); Red Blood Count 5.14 x10^6/uL (3.93-5.22); White Blood Count 12.4 x10^3/uL (3.98-10.04)
[2025-03-17 22:25] LABS: Calcium 9.4 mg/dL (8.4-10.2); Carbon Dioxide 24.0 mmol/L (22-30); Creatinine 1 0.77 mg/dL (0.52-1.04); EST GLOMERULAR FILTRATION RATE 101.8 ML/MIN; Glucose 112.0 mg/dL (74-106); Potassium 3.5 mmol/L (3.5-5.1); SGOT/AST 443.0 U/L (14-36); SGPT/ALT 571.0 U/L (0-35); Total Protein 7.9 g/dL (6.3-8.2)
--- NOTE | 2025-03-17 22:37 | ERPHSYRPT ---
- History of Present Illness Patient Subjective Stated Complaint: Abdominal pain- RUQ Triage Nursing Assessment: Patient ambulated back to ED and transferred self to bed. Patient A+O X 3. Patient's skin flushed, warm, and dry. Patient complains of RUQ pain 8/10. Patient also complains N/V, but denies diarrhea. Abdomen soft and round with hypoactive bs X 4. Physician History: Abdominal pain, patient developed right upper quadrant abdominal pain 5 days ago, Her symptoms seem to wax and wane, this morning she got up and she had no pain, she ate at [employer] for breakfast, she then had [employer] this evening for dinner and her pain became quite severe, no previous abdominal surgeries, She does have some intolerances to fatty foods Timing/Duration: day(s) (5) Quality: aching Abdominal Pain Onset Location: RUQ Severity of Pain-Max: severe Severity of Pain-Current: severe Modifying Factors: Improves With: eating Associated Symptoms: nausea Previous symptoms: no prior history Allergies/Adverse Reactions: No Known Drug Allergies Allergy (Verified 03/17/25 21:33) Home Medications: No Reportable Medications [No Reported Medications] 03/31/23 [History] Hx Tetanus, Diphtheria Vaccination/Date Given: No Hx Influenza Vaccination/Date Given: No Hx Pneumococcal Vaccination/Date Given: No Immunizations Up to Date: Yes Travel Risk - International Travel Have you traveled outside of the country in past 3 weeks: No - Emerging Infectious Disease Are you exhibiting symptoms associated with any current EIDs: No - Past Medical History Pertinent Past Medical History: No Neurological History: No Pertinent History ENT History: No Pertinent History Cardiac History: No Pertinent History Respiratory History: No Pertinent History Endocrine Medical History: No Pertinent History Musculoskeletal History: No Pertinent History GI Medical History: No Pertinent History History: No Pertinent History Psycho-Social History: Anxiety Female Reproductive Disorders: No Pertinent History - Past Surgical History Past Surgical History: No - Female History Hx Last Menstrual Period: two weeks ago Hx Now: No - Social History Smoking Status: Never smoker Exposure to second hand smoke: No Drug Use: none - Social Determinants of Health Will the patient participate in the screening: Yes Do you worry about a steady place to live?: No Do you have any problems with any of the following?: No known problems In the past 12 months,have you had to go without utilities?: No Transportation Issues: No Has anyone in your support network made you feel unsafe?: No Have you or anyone in your house had to go w/o enough food: No - Nursing Vital Signs Nursing Vital Signs: Initial Vital Signs O2 Sat by Pulse Oximetry 99 03/17/25 21:32 Pain Scale Pain Intensity 0 - Physical Exam General Appearance: no apparent distress, alert Eye Exam: PERRL/EOMI, eyes nml inspection Ears, Nose, Throat Exam: normal ENT inspection, pharynx normal, moist mucous membranes Neck Exam: normal inspection, non-tender, supple, full range of motion Respiratory Exam: normal breath sounds, lungs clear, No respiratory distress Cardiovascular Exam: regular rate/rhythm, normal heart sounds Gastrointestinal/Abdomen Exam: soft, tenderness, other (Positive Frank sign), No mass, No guarding, No hepatomegaly Back Exam: normal inspection, normal range of motion, No CVA tenderness, No vertebral tenderness Extremity Exam: normal inspection, normal range of motion, pelvis stable Neurologic Exam: alert, oriented x 3, cooperative, normal mood/affect, nml cerebellar function, sensation nml, No motor deficits Skin Exam: normal color, warm, dry SpO2 Interpretation: normal SpO2: 99 - CT Exams Abdomen/Pelvis CT Interpretation: Other (gallstones, gallbladder wall thickening interpreted by me) Ordered Tests: Active Orders 24 hr Category Date Time Status IV Insertion STAT Care 03/17/25 21:58 Active ABDOMEN AND PELVIS W CONTRAST [CT] Stat Exams 03/17/25 21:59 Taken CBC W DIFF Stat Lab 03/17/25 22:07 Completed CMP Stat Lab 03/17/25 22:07 Completed LIPASE Stat Lab 03/17/25 22:07 Completed Lactic Acid Stat Lab 03/18/25 00:08 Ordered Medication Summary Generic Name Dose Route Start Last Admin Trade Name Freq PRN Reason Stop Dose Admin Piperacillin Sod/Tazobactam 100 mls @ 200 mls/hr 03/18/25 00:08 Sod 4.5 gm/ Sodium Chloride IV 03/18/25 00:37 STAT STA Discontinued Medications Generic Name Dose Route Start Last Admin Trade Name Freq PRN Reason Stop Dose Admin Droperidol 1.25 mg 03/17/25 22:30 03/17/25 22:40 Droperidol 5 Mg/2 Ml Vial IV 03/17/25 22:31 1.25 mg STAT ONE Administration Droperidol Confirm 03/17/25 22:39 Droperidol 5 Mg/2 Ml Vial Administered 03/17/25 22:40 Dose 5 mg .ROUTE .STK-MED ONE Morphine Sulfate 4 mg 03/17/25 21:58 03/17/25 22:07 Morphine Sulfate 4 Mg/Ml Injection IV 03/17/25 21:59 4 mg STAT ONE Administration Morphine Sulfate Confirm 03/17/25 22:05 Morphine Sulfate 4 Mg/Ml Injection Administered 03/17/25 22:06 Dose 4 mg .ROUTE .STK-MED ONE Ondansetron HCl 4 mg 03/17/25 21:58 03/17/25 22:07 Ondansetron Hcl 4 Mg/2 Ml Vial IV 03/17/25 21:59 4 mg STAT ONE Administration Ondansetron HCl Confirm 03/17/25 22:05 Ondansetron Hcl 4 Mg/2 Ml Vial Administered 03/17/25 22:06 Dose 4 mg .ROUTE .STK-MED ONE Lab/Rad Data: Laboratory Result Diagrams 03/17/25 22:07 03/17/25 22:07 Laboratory Results 03/17/25 03/17/25 Range/Units 22:07 22:07 WBC 12.4 H (3.98-10.04) x10^3/uL RBC 5.14 (3.93-5.22) x10^6/uL Hgb 12.8 (11.2-15.7) g/dL Hct 40.9 (34.1-44.9) % MCV 79.6 (79.4-94.8) fL MCH 24.9 L (25.6-32.2) pg MCHC 31.3 L (32.2-35.5) g/dL RDW 15.4 H (11.7-14.4) % Plt Count 514 H (182-369) x10^3/uL MPV 10.5 (9.4-12.3) fL Gran % 71.1 (34.0-71.1) % Immature Gran % (Auto) 0.4 (0.001-0.429) % Nucleat RBC Rel Count 0.0 (0.00-0.2) % Eos # (Auto) 0.15 (0.04-0.36) x10^3/uL Immature Gran # (Auto) 0.05 H (0.001-0.031) x10^3u/L Absolute Lymphs (auto) 2.32 (1.18-3.74) x10^3/uL Absolute Monos (auto) 0.98 H (0.24-0.86) x10^3/uL Absolute Nucleated RBC 0.00 (0.00-0.012) x10^3u/L Lymphocytes % 18.6 L (19.3-51.7) % Monocytes % 7.9 (4.7-12.5) % Eosinophils % 1.2 (0.7-5.8) % Basophils % 0.8 (0.1-1.2) % Absolute Granulocytes 8.84 H (1.56-6.13) x10^3/uL Basophils # 0.10 H (0.01-0.08) x10^3/uL Sodium 138 (135-145) mmol/L Potassium 3.5 (3.5-5.1) mmol/L Chloride 104 (98-107) mmol/L Carbon Dioxide 24 (22-30) mmol/L Anion Gap 14.4 (5-15) MEQ/L BUN 8 (7-17) mg/dL Creatinine 0.77 (0.52-1.04) mg/dL Estimated GFR 101.8 ML/MIN Glucose 112 H (74-106) mg/dL Calcium 9.4 (8.4-10.2) mg/dL Total Bilirubin 2.10 H (0.2-1.3) mg/dL AST 443 H (14-36) U/L ALT 571 H (0-35) U/L Alkaline Phosphatase 197 H (38-126) U/L Serum Total Protein 7.9 (6.3-8.2) g/dL Albumin 4.5 (3.5-5.0) g/dL Lipase 169 (23-300) U/L - Progress Progress: improved Progress Note: 03/18/25 00:11 Pain-free at this time remains afebrile, consult general surgery, they recommended the patient be transferred for an MRCP, consult to GI and hospitalist at [facility](accepted transfer) - Departure Departure Disposition: Transfer Clinical Impression: Cholecystitis with cholelithiasis Qualifiers: Cholelithiasis location: gallbladder and bile duct Cholecystitis acuity: acute Biliary obstruction: with biliary obstruction Qualified Code(s): K80.63 - Calculus of gallbladder and bile duct with acute cholecystitis with obstruction Condition: Stable Critical Care Time: No Referrals: NAYELI TERRY NP [Primary Care Provider, [facility]] - Follow up/PCP as directed
[2025-03-17] MEDS ORDERED: Inapsine 5 MG/2 ML ONE (22:39)
[2025-03-17] MEDS: Inapsine 5 MG/2 ML IV ONE (22:40)
[2025-03-18] MEDS ORDERED: PIPERACILLIN/TAZOBACTAM IV ONE (00:18)
--- NOTE | 2025-03-18 00:48 | XRAY ---
CLINICAL HISTORY: RUQ abd pain COMPARISON: None TECHNIQUE: Multiple contiguous axial images were obtained from the level of the diaphragm to the pubic symphysis. This study was acquired after the IV administration of iodinated contrast material, given the patient's indications for the examination. If IV contrast material had not been administered, the likelihood of detecting abnormalities relevant to the patient's condition would have been substantially decreased. Coronal and sagittal reformatted images were generated and reviewed to improve anatomic localization and optimize lesion detection. The CT scan was performed according to ALARA (as low as reasonably achievable). FINDINGS: The visualized lung bases are clear. ABDOMEN/PELVIS: The liver is enlarged in size, measuring approximately 18 cm in the midclavicular line, and shows normal attenuation. No focal liver lesions are seen. There is no intrahepatic or extrahepatic biliary ductal dilatation. Hepatic vasculature is patent. The gallbladder is well-distended, with evidence of multiple 1-3 mm radiodense calculi within and wall thickening measuring up to 3 mm in wall thickness. The spleen, pancreas, and adrenal glands are unremarkable. The kidneys are normal in size and attenuation. There is no hydronephrosis or perinephric fat stranding. No renal calculi or renal masses are identified. The ureters are normal in caliber and no ureteral calculi are seen. The bladder is normal in contour. No evidence of focal or diffuse bowel wall thickening or evidence of bowel obstruction is seen. The appendix is visualized in the right lower quadrant and appears within normal limits. Pelvic viscera are unremarkable. No adenopathy or fluid collections are seen. The aorta is normal in caliber. No aggressive-appearing osseous lesions are identified. IMPRESSION: 1. Features of mild acute calculus cholecystitis. Suggest ultrasound and Frank's sign correlation. 2. Hepatomegaly. Electronically Signed by: Herman Barron MD. (03/18/2025 00:47:08 EDT)
[2025-03-18 01:39] VITALS: BP 115/71; PULSE 68; RESP 18; O2SAT 95
== END 2025-03-18 01:45 | disposition short-term general hospital (02) ==
LOC: ED 21:13
DX: K80.63 Calculus of gallbladder and bile duct with acute cholecystitis with obstruction (principal); R10.11 Right upper quadrant pain